=== PATIENT | female | born 1960 ===

== ENCOUNTER 2021-08-14 08:21 | Outpatient (CLI) | payer OTHER ==
--- NOTE | 2021-08-21 09:08 | Mammography Report ---
BILATERAL DIGITAL SCREENING MAMMOGRAM 3D/2D: 08/14/2021 CLINICAL: Routine screening. Comparison is made to exams dated: 08/16/2020 mammogram, 04/27/2019 mammogram, 06/02/2018 mammogram, mammogram, 05/05/2016 mammogram, and 04/11/2015 mammogram - [facility]. The tissue of both breasts is heterogeneously dense. This may lower the sensitivity of mammography. There are benign calcifications in the left breast. No significant masses, calcifications, or other findings are seen in either breast. There has been no significant interval change. IMPRESSION: BENIGN There is no mammographic evidence of malignancy. A 1 year screening mammogram is recommended. This exam was interpreted at Station ID: [id number]. NOTE: For mammograms, a report in lay terms will be sent to the patient. Approximately 15% of breast malignancies will not be visualized mammographically. In the management of a palpable breast mass, a negative mammogram must not discourage biopsy of a clinically suspicious lesion. Electronically Signed By: Ferny Ko M.D. [email or web address]/[email or web address]:08/20/2021 14:14:37 copy to: [facility] BI-RADS Category 2: Benign Finding(s) 3342F PARENCHYMAL PATTERN: (D) - The breast(s) demonstrate(s) heterogeneously dense fibroglandular parraveny winston. BI-RADS CATEGORY: (2) - 2 RECOMMENDATION: (ANNUAL) - Recommend routine annual screening mammography. [id number] 1 year screening LATERALITY: (B)
== END 2021-08-14 08:22 | disposition home or self-care (01) ==
LOC: DI 08:21
PROVIDERS: ATTEND Nurse Practitioner Acute Care
DX: Z12.31 Encounter for screening mammogram for malignant neoplasm of breast (principal)

== ENCOUNTER 2021-09-30 13:13 | Outpatient (CLI) | payer OTHER | END 2021-09-30 13:14 | disposition home or self-care (01) | LOC: CAM 13:13 | PROVIDERS: ATTEND Nurse Practitioner Acute Care | DX: M54.50 Low back pain, unspecified (principal) | CPT/HCPCS: 97810; 97811 ==

== ENCOUNTER 2021-10-21 15:56 | Outpatient (CLI) | payer OTHER | END 2021-10-21 15:57 | disposition home or self-care (01) | LOC: CAM 15:56 | PROVIDERS: ATTEND Nurse Practitioner Acute Care | DX: M54.50 Low back pain, unspecified (principal) | CPT/HCPCS: 97813; 97814 ==

== ENCOUNTER 2021-12-02 13:03 | Outpatient (CLI) | payer OTHER | END 2021-12-02 13:04 | disposition home or self-care (01) | LOC: CAM 13:03 | PROVIDERS: ATTEND Nurse Practitioner Acute Care | DX: M54.50 Low back pain, unspecified (principal) | CPT/HCPCS: 97813; 97814 ==

== ENCOUNTER 2022-08-13 12:50 | Outpatient (CLI) | payer OTHER ==
--- NOTE | 2022-08-14 10:26 | Mammography Report ---
BILATERAL DIGITAL SCREENING MAMMOGRAM 3D/2D: 08/13/2022 CLINICAL: Routine screening. Comparison is made to exams dated: 08/14/2021 mammogram - [facility], 08/16/2020 felipe mogram, 04/27/2019 mammogram, 06/02/2018 mammogram, and 05/28/2017 mammogram - [facility]. Both breasts are heterogeneously dense, which may obscure small masses (category c / 51-75% glandular tissue). There are benign calcifications in the left breast. No significant masses, calcifications, or other findings are seen in either breast. There has been no significant interval change. IMPRESSION: BENIGN There is no mammographic evidence of malignancy. A 1 year screening mammogram is recommended. Based on the Tyrer Cuzick model (a risk assessment model) the patients lifetime risk is 9.6% and her 10 year risk is 4.0%. According to the ACR, ACS, and NCCN guidelines, an annual breast MRI exam get g with mammogram is recommended if the patients lifetime risk is 20% or greater. This exam was interpreted at Station ID: [id number]. NOTE: For mammograms, a report in lay terms will be sent to the patient. Approximately 15% of breast malignancies will not be visualized mammographically. In the management of a palpable breast mass, a negative mammogram must not discourage biopsy of a clinically suspicious lesion. Electronically Signed By: Dolly townsend/sita:08/13/2022 14:07:51 copy to: [facility] BI-RADS Category 2: Benign Finding(s) 3342F PARENCHYMAL PATTERN: (D) - The breast(s) demonstrate(s) heterogeneously dense fibroglandular jesús montero. BI-RADS CATEGORY: (2) - 2 RECOMMENDATION: (ANNUAL) - Recommend routine annual screening mammography. [id number] 1 year screening LATERALITY: (B)
== END 2022-08-13 12:51 | disposition home or self-care (01) ==
LOC: DI 12:50
PROVIDERS: ATTEND Nurse Practitioner Acute Care
DX: Z12.31 Encounter for screening mammogram for malignant neoplasm of breast (principal)

== ENCOUNTER 2022-10-10 14:31 | Outpatient (CLI) | payer OTHER ==
[2022-10-10 14:58] LABS: CREATININE 0.7 mg/dL (0.4-1.0)
[2022-10-10] MEDS ORDERED: iohexoL-300 100 ML VIAL ONE ×2 (16:53→17:45)
[2022-10-10] MEDS ORDERED: iohexoL-300 100 ML VIAL IVP ONE (18:57)
--- NOTE | 2022-10-10 21:19 | CT Report ---
PROCEDURE: IVP INDICATIONS: MODERATE PERSISTENT ALBUMINURIA CONTRAST: 140ml omni 300 TECHNIQUE: After the administration of intravenous contrast, 5 mm thick sections acquired from the diaphragms to the symphysis. 5 mm thick coronal and sagittal reformats were acquired. For radiation dose reducti on, the following was used: automated exposure control, adjustment of mA and/or kV according to marquez ent size. COMPARISON: None. FINDINGS: Image quality: Excellent. Lung bases: Scarring in the right lower lung. A 6 mm nodule at the right middle lobe. 8 mm nodule in the left medial lower lobe no pleural effusion. Heart size is normal. Urinary system: Both kidneys are normal in size and enhancement. There are a few parapelvic cysts in the left mid and lower pole, and right mid pole regions. Subcentimeter cortical cyst present in the anterior left midpole too small to characterize. Contrast-filled renal calyces are normal in morpholo gy. Contrast filled portions of both ureters are normal in caliber. Bladder wall thickness is joanne l. No suspicious bladder lesions. Solid organs: Liver and spleen are normal in size and enhancement. Gallbladder is normal. Biliary system is non dilated. Pancreas enhances normally. No adrenal nodules. Peritoneum and bowel: Bowel loops demonstrate normal wall thickness and caliber. No free fluid or a ir. Nodes and vessels: No retroperitoneal or mesenteric adenopathy by size criteria. Aorta and inferior vena cava are normal in size. Abdominal wall: No ventral hernias. Pelvis: No pathologic free pelvic fluid. No inguinal hernias or adenopathy. Mild posterior pelvic floor prolapse. 2.2 cm cyst in the expected location of the right ovary. The uterus is anteverted and normal size. The left ovary was not well evaluated. Bones: No suspicious bony lesions. Severe multilevel lumbar disc height loss. No vertebral body com pression fractures. IMPRESSION: 1. Aside from bilateral parapelvic cysts, there is normal bilateral renal morphology and enhancement. No evidence of urinary calcification or obstruction. 2. Bilateral lower lobe lung nodules. Consider routine chest CT for further evaluation. Reviewed by: Kamilla Beyer MD on 10/10/2022 9:17 PM [facility] Approved by: Kamilla Beyer MD on 10/10/2022 9:17 PM [facility] Station ID: [id number]
== END 2022-10-10 14:32 | disposition home or self-care (01) ==
LOC: LAB 14:31
PROVIDERS: ATTEND Nurse Practitioner Acute Care
DX: R80.9 Proteinuria, unspecified (principal); N28.1 Cyst of kidney, acquired; R91.8 Other nonspecific abnormal finding of lung field
CPT/HCPCS: 36415; 74178; 82565; Q9967

== ENCOUNTER 2022-12-30 09:47 | Outpatient (CLI) | payer OTHER ==
--- NOTE | 2022-12-30 11:46 | CT Report ---
PROCEDURE: CHEST WO INDICATIONS: PULMONARY NODULE TECHNIQUE: Noncontrast 1mm axial images were acquired from the pulmonary apices to the posterior costophrenic an gles. Axial 5 mm soft tissue kernel reconstructions were performed as well as 8 mm axial MIP and cor onal and sagittal 5 mm reformations. For radiation dose reduction, the following was used: automate d exposure control, adjustment of mA and/or kV according to patient size. COMPARISON: CT IVP 10/10/2022 FINDINGS: Lymph nodes: No evidence of thoracic lymphadenopathy however evaluation for mediastinal and hilar rebekah nopathy is limited in the absence of intravenous contrast. Vasculature: Aorta and main pulmonary artery diameters are within normal range. Heart: No pericardial effusion. Lung parenchyma and pleura: Nodules include: -Right middle lobe: 7 mm (4/191) previously 6 mm no significant change allowing for differences in [place]. -Medial left lower lobe: 6 mm (4/218) previously 8 mm no significant change allowing for differences in technique. No consolidation or pleural effusion. Linear/band like opacities present within both lungs, likely sc arring and/or atelectasis. Chest wall/musculoskeletal: Multilevel degenerative change of the visualized spine. Visualized upper abdomen: Unremarkable. IMPRESSION: Previously demonstrated pulmonary nodules are not significantly changed. If the patient is considered low risk, consider imaging follow-up at 18-24 months. If the patient is considered high risk, then f ollow-up at 18-24 months would be recommended. Reviewed by: Sushil Crawford MD on 12/30/2022 11:44 AM PDT Approved by: Sushil Crawford MD on 12/30/2022 11:44 AM PDT Station ID: [id number]
== END 2022-12-30 09:48 | disposition home or self-care (01) ==
LOC: DI 09:47
PROVIDERS: ATTEND Nurse Practitioner Primary Care
DX: R91.8 Other nonspecific abnormal finding of lung field (principal)